=== PATIENT | female | born 2000 | race African-American/Black ===

== ENCOUNTER 2019-05-10 18:40 | Day surgery (SDC) | payer OTHER, SELFPAY ==
[2019-05-10] MEDS ORDERED: Acetaminophen 500 MG TAB ONE (20:23)
[2019-05-10 20:46] LABS: #Eosinphils 0.2 thou/uL (0.0-0.7); #Lymphocytes 2.1 thou/uL (1.20-3.40); #Neutrophils 8.5 thou/uL (1.40-6.50); %Basophils 0.2 % (0.0-1.0); %Eosinophils 1.4 % (0.0-10.0); %Lymphocytes 17.9 % (28.0-48.0); %Monocytes 8.2 % (0.0-4.0); %Neutrophils 72.3 % (31.0-61.0); Hemoglobin 10.4 g/dL (12.0-16.0); Mean Corpuscular HGB CONC 34.8 g/dL (32.0-36.0); Mean Corpuscular Hemoglobin 30.2 pg (25.0-35.0); Mean Corpuscular Volume 86.9 fL (78.0-98.0); Mean Platelet Volume 8.1 fL (7.4-10.4); Platelet Count 290 thou/uL (130-400); RBC Distribution Width 15.5 % (11.5-14.5); Red Blood Cell (RBC) Count 3.43 mill/uL (4.00-5.20); White Blood Cell (WBC) Count 11.7 thou/uL (4.8-10.8)
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
[2019-05-10 21:08] LABS: ALT (SGPT) Less than 7 U/L (8-55); AST (SGOT) 11 U/L (5-30); Albumin 3.3 g/dL (3.5-5.0); Alkaline Phosphatase 68 U/L (40-100); Anion Gap 13 mmol/L (10-20); BUN (Urea Nitrogen) 4 mg/dL (8.4-21.0); Bilirubin, Total Less than 0.2 mg/dL (0.2-1.2); Calc. Creatinine Clearance 0 mL/min (70-130); Carbon Dioxide 23 mmol/L (22-29); Chloride 104 mmol/L (98-107); Estimated GFR-MDRD Greater than 90; Globulin 3.1 g/dL (2.4-3.5); Glucose 115 mg/dL (70-105); Potassium 3.7 mmol/L (3.5-5.1); Protein, Total 6.4 g/dL (6.0-8.3); Sodium 136 mmol/L (136-145)
[2019-05-10 22:42] VITALS: BP 112/70; TEMP 98.7; BMI 29.2
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
== END 2019-05-10 22:48 | disposition home or self-care (01) ==
LOC: L&D/OP 18:40 → ERS 18:40 → EDSTATUS 21:50 → L&D/OP 22:48
PROVIDERS: ATTEND Obstetrics & Gynecology
DX: Z04.1 Encounter for examination and observation following transport accident (principal); O99.89 Other specified diseases and conditions complicating pregnancy, childbirth and the puerperium; M54.2 Cervicalgia; Z3A.30 30 weeks gestation of pregnancy
CPT/HCPCS: 36415; 72050; 80053; 85025; 85384

== ENCOUNTER 2019-06-27 18:00 | Inpatient (IN) | payer MEDICAID, OTHER ==
[~2019-06-27 18:00] MED LIST: NS / Oxytocin 40 units/1000ml 1,000 ML IV PRN; Ondansetron PF 4 MG/2 ML Vial IVP PRN; Promethazine HCl 25 MG/ML VIAL IM PRN; hydrALAZINE 20 MG/ML VIAL SLOW IVP PRN
[2019-06-27] MEDS ORDERED: Ibuprofen 800 MG TAB PO PRN (19:00)
[2019-06-27] MEDS ORDERED: Lidocaine 1% (PF) 30 ML VIAL SC PRN (19:00)
[2019-06-27] MEDS ORDERED: Misoprostol 200 MCG TAB PR PRN (19:00)
[2019-06-27] MEDS ORDERED: Carboprost 250 MCG/ML AMP IM PRN (19:00)
[2019-06-27] MEDS: Lactated Ringer's 1,000 ML IV SCH (19:12)
[2019-06-27] MEDS ORDERED: Misoprostol 100 MCG TAB VAG SCH (19:30)
[2019-06-27 19:48] VITALS: BMI 35.6
[2019-06-27 19:49] LABS: Hemoglobin 10.3 g/dL (12.0-16.0); Mean Corpuscular HGB CONC 34.4 g/dL (32.0-36.0); Mean Corpuscular Hemoglobin 28.4 pg (25.0-35.0); Mean Corpuscular Volume 82.5 fL (78.0-98.0); Mean Platelet Volume 8.1 fL (7.4-10.4); Platelet Count 284 thou/uL (130-400); RBC Distribution Width 16.8 % (11.5-14.5); Red Blood Cell (RBC) Count 3.64 mill/uL (4.00-5.20); White Blood Cell (WBC) Count 11.4 thou/uL (4.8-10.8)
[2019-06-27 20:08] LABS: ALT (SGPT) 8 U/L (8-55); AST (SGOT) 15 U/L (5-30); Albumin 3.1 g/dL (3.5-5.0); Alkaline Phosphatase 115 U/L (40-100); Anion Gap 10 mmol/L (10-20); BUN (Urea Nitrogen) Less than 4 mg/dL (8.4-21.0); Bilirubin, Total 0.2 mg/dL (0.2-1.2); Calc. Creatinine Clearance 200 mL/min (70-130); Calcium 8.7 mg/dL (7.8-10.44); Carbon Dioxide 23 mmol/L (22-29); Chloride 105 mmol/L (98-107); Estimated GFR-MDRD Greater than 90; Globulin 3.1 g/dL (2.4-3.5); Glucose 109 mg/dL (70-105); Potassium 3.4 mmol/L (3.5-5.1); Protein, Total 6.2 g/dL (6.0-8.3); Sodium 135 mmol/L (136-145)
[2019-06-27 20:26] LABS: Syphilis Antibody Nonreactive (Nonreactive); Syphilis Antibody Index 0.04 S/CO (<1.00 Non-Reactive)
[2019-06-27 23:03] LABS: HBSAg Index 0.16 S/CO (0-0.99); Hep B Surf Ag Non-Reactive S/CO (NonReactive)
--- NOTE | 2019-06-28 00:09 | PDOC.FPROB ---
FMR OB H&P: HPI - History of Present Illness Chief Complaint: IOL for gHTN Indentification: 18 yo at 37.0 weeks presents for IOL History of Present Illness: Patient is a 18 yo female at 37.0 weeks by LMP c/w 7.3 wk U/S who presents for induction of labor for gestational hypertension. course has also been followed for weight gain of 49 pounds and anemia of . Currently the patient denies any complaints and states she feels well. Denies any vaginal bleeding/spotting, vaginal discharge, loss of fluid, headaches, vision changes, blurry vision, abdominal pain, n/v, diarrhea, myalgias, paresthesias. Primary Care Physician: [facility] FMR OB H&P: Current - Care : 1 Para: 0 Gestational age: 37.0 weeks Due date: 07/18/2019 Dating Criteria: 7.3 week u/s Total weight gain: 49 lbs Course/Complications: Anemia of Obesity, BMI 35 with total weight gain so far of 49 lbs Gestational Hypertension - OB Labs Blood type: O RH: positive Antibody Screen: negative HIV: negative RPR: negative HepBsAg: negative Rubella: immune Quad screen: unknown Urine drug screen: not done Gonorrhea: negative Chlamydia: negative 1 hour gtt: 130 GBS: negative H&H: 10.7 Platelets: 374 Additional labs: last urine protein/creatinine ratio 0.150 - Additional Ultrasound Additional: growth 37.2% FMR OB H&P: History - Past Medical History PMH: sickle cell trait - OB History OB History: G1 - Surgical History Sx History: none - Social History Social History: Denies tobacco or EtOH use - Family History Family History: no major issues FMR OB H&P: Medications - Current Home Medications: Medication Instructions Recorded Confirmed Type Vitamin 1 tablet PO DAILY 06/27/19 06/27/19 History Allergies/Adverse Reactions: Allergies Allergy/AdvReac Type Severity Reaction Status Date / Time No Known Allergies Allergy Verified 06/27/19 19:42 FMR OB H&P: ROS - Review of Systems General: denies: fever/chills, weight/appetite/sleep changes, fatigue Eyes: denies: eye pain, vision changes, double vision ENT: denies: nasal congestion, sore throat Cardiovascular: denies: chest pain, palpitation, edema, claudication Respiratory: denies: cough, congestion, shortness of breath Gastrointestinal: denies: abdominal pain, indigestion, nausea, vomiting, diarrhea Genitourinary (Female): denies: dysuria, vaginal discharge, vaginal pain, vaginal bleeding, contractions, vaginal pressure Musculoskeletal: denies: pain, tenderness, swelling, decrease range of motion Neurologic: denies: numbness, weakness, headache Integumentary: denies: itching, rash, lesions Psychological: denies: depression, anxiety FMR OB H&P: Vital Signs - Maternal Vital signs: BP 137/84 HR 110 - Heart Tones Baseline: 155 Variability: moderate Acceleration: present Deceleration: absent Category: category 1 [place] contractions every: none seen on monitor FMR OB H&P: Physical Exam - Physical Exam General: NAD, awake, alert and oriented HEENT: normocephalic and atraumatic, EOMI, MMM, grossly normal vision, grossly normal hearing Neck: supple, FROM Heart: RRR, normal S1/S2, no murmurs/rubs/gallops, pulses present, no edema General: CTAB, no respiratory distress, good air movement, no rales/rhonchi, no wheezing Abdomen: soft, non-tender, bowel sound present Musculoskeletal: normal gait and station, pulses present, FROM in all four extremities Deviation from normal: DTRs 2+ in patella and achilles Neurological: sensation to pain,touch and proprioception grossly normal, no clonus, no tremor, no focal deficit Skin: no rash, good tugor, no jaundice Lymphatic: no unusual bruising or bleeding Psychiatric: intact recent and remote memory, normal mood and affect - Pelvic Exam Vulva: normal hair distribution, no lesions, no discharge, no blood SVE: thick, high, closed Segura score: 0 Membranes: intact Presentation: cephalic/vertex FMR OB H&P: Results - Labs Lab results: Laboratory Results - last 24 hr 06/27/19 06/27/19 06/27/19 19:37 19:37 19:37 WBC RBC Hgb Hct MCV MCH MCHC RDW Plt Count MPV Sodium Potassium Chloride Carbon Dioxide Anion Gap BUN Creatinine Estimated GFR (MDRD) Glucose Uric Acid Calcium Total Bilirubin AST ALT Alkaline Phosphatase Serum Total Protein Albumin Globulin Albumin/Globulin Ratio Syphilis IgG/IgM Ab Nonreactive Hep Bs Antigen Non-Reactive Blood Type O POSITIVE Antibody Screen NEGATIVE 06/27/19 06/27/19 06/27/19 19:37 19:37 19:37 WBC 11.4 H RBC 3.64 L Hgb 10.3 L Hct 30.0 L MCV 82.5 MCH 28.4 MCHC 34.4 RDW 16.8 H Plt Count 284 MPV 8.1 Sodium 135 L Potassium 3.4 L Chloride 105 Carbon Dioxide 23 Anion Gap 10 BUN Less than 4 L Creatinine 0.65 Estimated GFR (MDRD) Greater than 90 Glucose 109 H Uric Acid 5.7 Calcium 8.7 Total Bilirubin 0.2 AST 15 ALT 8 Alkaline Phosphatase 115 H Serum Total Protein 6.2 Albumin 3.1 L Globulin 3.1 Albumin/Globulin Ratio 1.0 L Syphilis IgG/IgM Ab Hep Bs Antigen Blood Type Antibody Screen 06/27/19 19:50 WBC RBC Hgb Hct MCV MCH MCHC RDW Plt Count MPV Sodium Potassium Chloride Carbon Dioxide Anion Gap BUN Creatinine Estimated GFR (MDRD) Glucose Uric Acid Calcium Total Bilirubin AST ALT Alkaline Phosphatase Serum Total Protein Albumin Globulin Albumin/Globulin Ratio Syphilis IgG/IgM Ab Hep Bs Antigen Blood Type O POSITIVE Antibody Screen FMR OB H&P: A/P - Problem List (1) Third trimester Status: Acute Code(s): Z34.93 - ENCNTR FOR SUPRVSN OF NORMAL PREG, UNSP, THIRD TRIMESTER (2) Encounter for elective induction of labor Status: Acute Code(s): Z34.90 - ENCNTR FOR SUPRVSN OF NORMAL , UNSP, UNSP TRIMESTER Disposition: 18 yo female at 37.0 weeks presents for IOL for gHTN: #Third Trimester -planned induction of labor for gestational HTN -will place cytotec 25 mg per vagina -initial SVE closed, thick, and high--plan to recheck SVE in 4 hours (approx. 0100) #Gestational HTN -no severe range pressures at clinic, current BP 137/84 -will check Pre-E labs including CBC, CMP, uric acid, urine protein, urine creatinine Dispo: Stable, admitted to L&D for planned induction. Will plan for next check in 4 hours. Depending on SVE at that time will consider repeating cytotec vs another induction agent. Will continue to monitor. Discussion: Date/Time: 11/25/19 2100 This H&P was discussed with Dr. Farmer and Dr. Santos who agree with the above documentation and plan. Addendum - Attending - Attending Attestation Date/Time: 06/27/19 3664 I personally evaluated the patient and discussed the management with Dr. Denney I agree with the History, Examination, Assessment and Plan documented above with any addition or exceptions noted below. 18 yo female admitted for medically indicated IOL for gHTN. Patient denies symptoms. No severe range BP. Labs repeated today. Cephalic by sono. Unfavorable cervix. Induction with miso q 4 hours. Ok to eat after 2 hours if remains stable. Cat 1 tracing. ABrayMD
--- NOTE | 2019-06-28 02:13 | PDOC.LDPN ---
Labor & Delivery Progress Note - Subjective Subjective: comfortable, no concerns - Objective Vital signs reviewed and normal: yes (BP 124/71, HR 104) General: NAD, resting Uterine fundus: non tender SVE: thick, closed, high FHT: category 1, variability present [place] contractions every: 3-6 min - Assessment (1) Third trimester Code(s): Z34.93 - ENCNTR FOR SUPRVSN OF NORMAL PREG, UNSP, THIRD TRIMESTER Status: Acute (2) Encounter for elective induction of labor Code(s): Z34.90 - ENCNTR FOR SUPRVSN OF NORMAL , UNSP, UNSP TRIMESTER Status: Acute Plan: continue plan of care, labor augmentation -: 18 yo female at 37.0 weeks presents for IOL for gHTN: #Third Trimester -planned induction of labor for gestational HTN -cytotec 25 mg per vagina given at 2100 06/27, placed again at 0100 06/28 -SVE closed, thick, and high--plan to recheck SVE in 4 hours (approx. 0500) #Gestational HTN -no severe range pressures at clinic, current BP 124/71 -CBC, CMP, uric acid all near baseline values compared to [facility] records -urine protein, urine creatinine both still pending Dispo: Stable, admitted to L&D for planned induction. Will plan for next check in 4 hours. Depending on SVE at that time will consider repeating cytotec vs another induction agent. Will continue to monitor. Addendum - Attending - Attending Attestation Date/Time: 06/28/19 4400 I personally evaluated the patient and discussed the management with Dr. Denney I agree with the History, Examination, Assessment and Plan documented above with any addition or exceptions noted below. Stable. Give 2nd miso. Cat 1 tracing. Robby
[2019-06-28] MEDS: Butorphanol Tartrate 1 MG/ML VIAL SLOW IVP PRN ×4 (02:56→16:39)
[2019-06-28] MEDS: Lactated Ringer's 1,000 ML IV SCH ×3 (02:57→15:32)
--- NOTE | 2019-06-28 06:00 | PDOC.LDPN ---
Labor & Delivery Progress Note - Subjective Subjective: comfortable, no concerns - Objective Vital signs reviewed and normal: yes (BP 133/78, HR 111) General: NAD, resting Uterine fundus: non tender SVE: thick/closed/high FHT: category 1, variability present [place] contractions every: 1-2 min - Assessment (1) Third trimester Code(s): Z34.93 - ENCNTR FOR SUPRVSN OF NORMAL PREG, UNSP, THIRD TRIMESTER Current Visit: Yes Status: Acute (2) Encounter for elective induction of labor Code(s): Z34.90 - ENCNTR FOR SUPRVSN OF NORMAL , UNSP, UNSP TRIMESTER Current Visit: Yes Status: Acute Plan: continue plan of care, labor augmentation -: 18 yo female at 37.0 weeks presents for IOL for gHTN: #Third Trimester -planned induction of labor for gestational HTN -cytotec 25 mg per vagina given at 2100 06/27, placed again at 0100 06/28-- cannot give another cytotec at this time due to increased frequency of uterine contractions -will consider placing balloon -SVE closed, thick, and high--plan to recheck SVE in 4 hours (approx. 0900) -added on Stadol for pain control #Gestational HTN -no severe range pressures at clinic, current BP 133/78 -CBC, CMP, uric acid all near baseline values compared to [facility] records -urine protein, urine creatinine both still pending Dispo: Stable, admitted to L&D for planned induction. Will consider placing balloon in next 1-2 hours. Continue to monitor contractions, hold off on cytotec at this point. Will continue to monitor. Will plan for next check in 4 hours.
[2019-06-28] MEDS: Misoprostol 100 MCG TAB VAG SCH ×4 (07:32→21:44)
[2019-06-28] MEDS ORDERED: FLU VACC QS2019-20(6MOS UP)/PF 60 MCG/0.5 ML SYRINGE IM ONE (09:00)
[2019-06-28] MEDS ORDERED: NS w/ Oxytocin 10 units 500 ML ONE (13:58)
[2019-06-28] MEDS ORDERED: NS w/ Oxytocin 10 units 500 ML IV SCH (14:00)
[2019-06-28] MEDS ORDERED: Misoprostol 100 MCG TAB VAG SCH (20:45)
--- NOTE | 2019-06-28 21:49 | PDOC.LDPN ---
Labor & Delivery Progress Note - Subjective Subjective: comfortable - Objective Vital signs reviewed and normal: yes General: NAD, resting - Assessment (1) Gestational HTN Code(s): O13.9 - GESTATIONAL HTN W/O SIGNIFICANT PROTEINURIA, UNSP TRIMESTER Current Visit: Yes Status: Acute (2) Encounter for elective induction of labor Code(s): Z34.90 - ENCNTR FOR SUPRVSN OF NORMAL , UNSP, UNSP TRIMESTER Current Visit: Yes Status: Acute (3) Third trimester Code(s): Z34.93 - ENCNTR FOR SUPRVSN OF NORMAL PREG, UNSP, THIRD TRIMESTER Current Visit: Yes Status: Acute -: 18 yo female at 37.1 weeks presents for IOL for gHTN: #Third Trimester -planned induction of labor for gestational HTN -cytotec 25 mg per vagina given at 2100 06/27, 0100 06/28, 2200 on 06/18 - 2 attempts at balloon unsuccessful during day 06/28 -SVE /-3 recheck in 4 hours #Gestational HTN -no severe range pressures at clinic, current BP 122/78 -CBC, CMP, uric acid all near baseline values compared to [facility] records
[2019-06-29] MEDS: Misoprostol 100 MCG TAB VAG SCH ×2 (02:17→06:02)
[2019-06-29] MEDS: Butorphanol Tartrate 1 MG/ML VIAL SLOW IVP PRN ×3 (02:40→10:19)
--- NOTE | 2019-06-29 05:35 | PDOC.LDPN ---
Labor & Delivery Progress Note - Subjective Subjective: comfortable, painful contractions - Objective General: NAD, resting, breathing through contractions Uterine fundus: non tender SVE: @ 0200 Dilation: Closed Effacement: 50% Station: -3 FHT: category 1, variability present [place] contractions every: 3-5 minutes Procedures: cytotec #4 placed - Assessment (1) Encounter for elective induction of labor Code(s): Z34.90 - ENCNTR FOR SUPRVSN OF NORMAL , UNSP, UNSP TRIMESTER Current Visit: Yes Status: Acute Plan: continue plan of care, labor augmentation -: 18 yo female at 37.1 weeks presents for IOL for gHTN: #Third Trimester -planned induction of labor for gestational HTN -cytotec 25 mg per vagina given at 2100 06/27, 0100 06/28, 2200 on 06/28, 0200 06/29 -SVE 0/50/-3 @ 0200 recheck in 4 hours #Gestational HTN -no severe range pressures at clinic, current BP 129/71 -CBC, CMP, uric acid all near baseline values compared to [facility] records
--- NOTE | 2019-06-29 06:09 | PDOC.LDPN ---
Labor & Delivery Progress Note - Subjective Subjective: comfortable - Objective Vital signs reviewed and normal: yes General: NAD - Assessment (1) Gestational HTN Code(s): O13.9 - GESTATIONAL HTN W/O SIGNIFICANT PROTEINURIA, UNSP TRIMESTER Current Visit: Yes Status: Acute (2) Encounter for elective induction of labor Code(s): Z34.90 - ENCNTR FOR SUPRVSN OF NORMAL , UNSP, UNSP TRIMESTER Current Visit: Yes Status: Acute (3) Third trimester Code(s): Z34.93 - ENCNTR FOR SUPRVSN OF NORMAL PREG, UNSP, THIRD TRIMESTER Current Visit: Yes Status: Acute -: 18 yo female at 37.1 weeks presents for IOL for gHTN: #Third Trimester -planned induction of labor for gestational HTN -cytotec 25 mg per vagina given at 2100 06/27, 0100 06/28, 2200 on 06/28, 0200 06/29, 0600 06/29 -SVE 0/50/-3 @ 0600 FHT: baseline 145, variability present, accels present, no decels [place]: contractions q4-5 but are irregular at times #Gestational HTN -no severe range pressures at clinic, current BP 122/68 -CBC, CMP, uric acid all near baseline values compared to [facility] records
--- NOTE | 2019-06-29 12:00 | PDOC.LDPN ---
Labor & Delivery Progress Note - Subjective Subjective: comfortable, painful contractions - Objective Vital signs reviewed and normal: yes General: resting Uterine fundus: non tender Dilation: 1 Effacement: 50% Station: -3 FHT: category 1, variability present [place] contractions every: q1-3 - Assessment (1) Encounter for elective induction of labor Code(s): Z34.90 - ENCNTR FOR SUPRVSN OF NORMAL , UNSP, UNSP TRIMESTER Current Visit: Yes Status: Acute (2) Gestational HTN Code(s): O13.9 - GESTATIONAL HTN W/O SIGNIFICANT PROTEINURIA, UNSP TRIMESTER Current Visit: Yes Status: Acute (3) Third trimester Code(s): Z34.93 - ENCNTR FOR SUPRVSN OF NORMAL PREG, UNSP, THIRD TRIMESTER Current Visit: Yes Status: Acute -: 18 yo female at 37.1 weeks presents for IOL for gHTN: Third Trimester -planned induction of labor for gestational HTN -cytotec 25 mg per vagina given at 2100 06/27, 0100 06/28, 2200 on 06/28, 0200 06/29, 0600 06/29 -SVE 0/50/-3 @ 10:00 FHT: baseline 145, variability present, accels present, no decels [place]: contractions q1-3, received stadol no further cytotec at this time due to tachysystole - will recheck in 2 hours, will be 6 hours since last cytotec and assess for possible DC w/ follow up and rescheduled induction vs further augmentation Questionable chronic vs gestational HTN -no severe range pressures at clinic or here -CBC, CMP, uric acid all near baseline values compared to [facility] records -Review of [facility] records show elevated BP at approximately 9 weeks Addendum - Attending - Attending Attestation Date/Time: 06/29/19 1309 I personally evaluated the patient and discussed the management with Dr. Stahl I agree with the History, Examination, Assessment and Plan documented above with any addition or exceptions noted below. I personally evaluated the patient at 1300. SVE at 1300 was 0.5/50/-3. I reviewed the patient's clinic records and vitals during this induction. Her first elevated BP was at approximately 9 wk and was 144/90s which decreased to 138/80s on repeat. She was initiated on ASA PPx at that time and had baseline HTN labs drawn. Urine prot/cr was 0.29 at that time. She had repeat HTN labs drawn during late 2nd/early 3rd trimester which were unremarkable and had a urine prot/cr ratio of 0.15. She continued to have borderline BP throughout the but became consistently high 130s to low 140s as the progressed at which time she was dx with gHTN. During her induction, her highest BP was 144/100 which resolved spontaneously. The majority of her BP have been 120s-130s/80-low 90s. Her repeat PIH labs were unremarkable. She received 5 total dose of cytotec and had 2 failed cook balloon placements during this induction which changed her cervix from c/t/h to 0.5/50/-3. I discussed options with patient and FOB including placement of a 6th cytotec vs. d/c home with reattempt at IOL on 07/01/19. I discussed R/B/A of each option with the patient and FOB. Patient states she has home BP monitoring in place and has been adherent to home monitoring during this . I instructed her to check BP BID and RTC if BP >160/110 or she develops severe features which I described at length. I also discussed labor precautions with her at length. All questions were answered to her and the FOB's satisfaction. Repeat IOL scheduled on 07/01 at 0530. Patient given instructions and d/c home.
== END 2019-06-29 13:20 | disposition home health service (06) | DRG 833 ==
LOC: L&D 18:28
PROVIDERS: ADMIT Student in an Organized Health Care Education/Training Program; ATTEND Student in an Organized Health Care Education/Training Program
PROC: 3E0P7VZ Introduction of Hormone into Female Reproductive, Via Natural or Artificial Opening (ICD-10-PCS; principal; 2019-06-28)
PROC: 0U7C7ZZ Dilation of Cervix, Via Natural or Artificial Opening (ICD-10-PCS; 2019-06-28)
DX: O13.3 Gestational [pregnancy-induced] hypertension without significant proteinuria, third trimester (principal); O99.013 Anemia complicating pregnancy, third trimester; D64.9 Anemia, unspecified; O99.213 Obesity complicating pregnancy, third trimester; E66.9 Obesity, unspecified; Z3A.37 37 weeks gestation of pregnancy
CPT/HCPCS: 36415; 80053; 82570; 84156; 84550; 85027; 86780; 86850; 86900; 86901; 87340; C1726; J0595; J2590

== ENCOUNTER 2019-07-01 05:30 | Inpatient (IN) | payer OTHER ==
--- NOTE | 2019-07-01 03:27 | PDOC.FPROB ---
FMR OB H&P: HPI - History of Present Illness Chief Complaint: IOL for gHTN Indentification: 18yo @ 37.4wks EGA (EDC 07/18/2019 by LMP/7.3 wk sono) History of Present Illness: Patient is a 18 yo female at 37.4 weeks by LMP c/w 7.3 wk U/S who presents for induction of labor for gestational hypertension. course has also been followed for weight gain of 49 pounds and anemia of . Currently the patient denies any complaints and states she feels well. Denies any vaginal bleeding/spotting, vaginal discharge, loss of fluid, headaches, vision changes, blurry vision, abdominal pain, n/v, diarrhea, myalgias, paresthesias Primary Care Physician: JOSE ANGEL Meléndez FMR OB H&P: Current - Care : 1 Para: 0 Gestational age: 37.4 Due date: 07/18/2019 Dating Criteria: LMP 7.3wk sono Total weight gain: 49lbs Course/Complications: gestational HTN anemia of obesity - OB Labs Blood type: O RH: positive Antibody Screen: negative HIV: negative RPR: negative HepBsAg: negative Rubella: immune Quad screen: unknown Urine drug screen: not done Gonorrhea: negative Chlamydia: negative 1 hour gtt: 130 GBS: negative - Additional Ultrasound Additional: growth 37.2% FMR OB H&P: History - Past Medical History PMH: sickle cell trait - OB History OB History: G1 - BILL PEDDLER History BILL PEDDLER History: None - Surgical History Sx History: None - Social History Social History: Denies tobacco, alcohol, or illicit drug use - Family History Family History: non-contributory FMR OB H&P: Medications - Current Home Medications: Medication Instructions Recorded Confirmed Type Vitamin 1 tablet PO DAILY 06/27/19 07/01/19 History Allergies/Adverse Reactions: Allergies Allergy/AdvReac Type Severity Reaction Status Date / Time No Known Allergies Allergy Verified 06/27/19 19:42 FMR OB H&P: ROS - Review of Systems General: denies: fever/chills, weight/appetite/sleep changes Eyes: denies: eye pain, vision changes ENT: denies: nasal congestion, rhinorrhea, sore throat Cardiovascular: denies: chest pain, palpitation, edema Respiratory: denies: cough, congestion, shortness of breath Gastrointestinal: denies: abdominal pain, indigestion Genitourinary (Female): reports: contractions. denies: dysuria, hematuria, polyuria, vaginal discharge, vaginal pain, vaginal bleeding, vaginal pressure Musculoskeletal: denies: pain, stiffness, tenderness Neurologic: denies: numbness, syncope, seizures, weakness Integumentary: denies: itching, rash, lesions FMR OB H&P: Physical Exam - Physical Exam General: NAD, awake, alert and oriented HEENT: normocephalic and atraumatic, PERRLA, EOMI, MMM, conjunctiva clear, grossly normal vision, grossly normal hearing Neck: supple, trachea midline Heart: RRR, normal S1/S2, no murmurs/rubs/gallops, pulses present, no edema General: CTAB, no respiratory distress, good air movement, no rales/rhonchi Abdomen: soft, gravid, non-tender Musculoskeletal: normal gait and station, pulses present, FROM in all four extremities Neurological: cranial nerves II through XII intact Skin: no rash, good tugor Lymphatic: no unusual bruising or bleeding, no purpura, no petechia Psychiatric: intact recent and remote memory, good judgement and insight, normal mood and affect FMR OB H&P: A/P - Problem List (1) Encounter for induction of labor Status: Acute Code(s): Z34.90 - ENCNTR FOR SUPRVSN OF NORMAL , UNSP, UNSP TRIMESTER (2) Gestational HTN Status: Acute Code(s): O13.9 - GESTATIONAL HTN W/O SIGNIFICANT PROTEINURIA, UNSP TRIMESTER (3) Third trimester Status: Acute Code(s): Z34.93 - ENCNTR FOR SUPRVSN OF NORMAL PREG, UNSP, THIRD TRIMESTER Disposition: Stable, inpatient Discussion: Date/Time: 07/01/19 0325 18 yo female at 37.4 weeks presents for IOL for gHTN: Third Trimester -planned induction of labor for gestational HTN -will place cytotec 25 mg per vagina -patient is currently being set up with nursing, once she is we will check her cervix and place the cytotec if indicated. Gestational HTN -no severe range pressures at clinic, current BP 134/94 -recent Pre-E workup negative 06/27 -will re-check Pre-E labs including CBC, CMP, uric acid, urine protein, urine creatinine if she spikes an elevated BP antepartum This H&P was discussed with Dr. Lopes and Dr. Dotson who agree with the above documentation and plan. Addendum - Attending - Attending Attestation Date/Time: 07/01/19 1005 I personally evaluated the patient and discussed the management with Dr. Reinoso I agree with the History, Examination, Assessment and Plan documented above with any addition or exceptions noted below. Repeat attempt at IOL indicated for gHTN. BP WNL today. unchanged since d/c. repeat cytotec IOL.
[2019-07-01] MEDS ORDERED: Carboprost 250 MCG/ML AMP IM PRN (05:59)
[2019-07-01] MEDS ORDERED: Lidocaine 1% (PF) 30 ML VIAL SC PRN (05:59)
[2019-07-01] MEDS ORDERED: Ondansetron PF 4 MG/2 ML Vial IVP PRN (05:59)
[2019-07-01] MEDS ORDERED: hydrALAZINE 20 MG/ML VIAL SLOW IVP PRN (05:59)
[2019-07-01] MEDS ORDERED: Promethazine HCl 25 MG/ML VIAL IM PRN (05:59)
[2019-07-01] MEDS ORDERED: NS / Oxytocin 40 units/1000ml 1,000 ML IV PRN (05:59)
[2019-07-01] MEDS ORDERED: Misoprostol 200 MCG TAB PR PRN (05:59)
[2019-07-01 06:15] VITALS: BMI 35.6
[2019-07-01] MEDS: Lactated Ringer's 1,000 ML IV SCH ×2 (06:15→15:09)
[2019-07-01 06:30] LABS: Hemoglobin 10.4 g/dL (12.0-16.0); Mean Corpuscular HGB CONC 33.9 g/dL (32.0-36.0); Mean Corpuscular Hemoglobin 27.7 pg (25.0-35.0); Mean Corpuscular Volume 81.8 fL (78.0-98.0); Mean Platelet Volume 8.7 fL (7.4-10.4); Platelet Count 278 thou/uL (130-400); Red Blood Cell (RBC) Count 3.75 mill/uL (4.00-5.20)
[2019-07-01 06:58] LABS: ALT (SGPT) 10 U/L (8-55); AST (SGOT) 12 U/L (5-30); Albumin 2.7 g/dL (3.5-5.0); Alkaline Phosphatase 113 U/L (40-100); Anion Gap 12 mmol/L (10-20); BUN (Urea Nitrogen) 6 mg/dL (8.4-21.0); Bilirubin, Total 0.2 mg/dL (0.2-1.2); Calc. Creatinine Clearance 176 mL/min (70-130); Calcium 8.2 mg/dL (7.8-10.44); Carbon Dioxide 24 mmol/L (22-29); Chloride 106 mmol/L (98-107); Estimated GFR-MDRD Greater than 90; Globulin 2.5 g/dL (2.4-3.5); Glucose 88 mg/dL (70-105); Potassium 3.4 mmol/L (3.5-5.1); Protein, Total 5.2 g/dL (6.0-8.3); Sodium 139 mmol/L (136-145)
[2019-07-01 07:08] LABS: Hep B Surf Ag Non-Reactive S/CO (NonReactive); Syphilis Antibody Nonreactive (Nonreactive); Syphilis Antibody Index 0.04 S/CO (<1.00 Non-Reactive)
[2019-07-01] MEDS: Misoprostol 100 MCG TAB VAG SCH (08:00)
--- NOTE | 2019-07-01 08:19 | PDOC.LDPN ---
Labor & Delivery Progress Note - Subjective Subjective: comfortable - Objective Vital signs reviewed and normal: yes General: NAD Dilation: 0.5 FHT: category 1, variability present [place] contractions every: None - Assessment (1) Encounter for induction of labor Code(s): Z34.90 - ENCNTR FOR SUPRVSN OF NORMAL , UNSP, UNSP TRIMESTER Current Visit: No Status: Acute (2) Gestational HTN Code(s): O13.9 - GESTATIONAL HTN W/O SIGNIFICANT PROTEINURIA, UNSP TRIMESTER Current Visit: No Status: Acute (3) Third trimester Code(s): Z34.93 - ENCNTR FOR SUPRVSN OF NORMAL PREG, UNSP, THIRD TRIMESTER Current Visit: No Status: Acute Plan: continue plan of care, labor augmentation -: 18 yo female at 37.4 weeks presents for IOL for gHTN: Third Trimester -planned induction of labor for gestational HTN -cytotec 25mcg @ 0820 -SVE: 0.5/50/-3 @ 0820 -bedside US confirmed vertex position Gestational HTN -no severe range pressures at clinic, current BP 129/69 -recent Pre-E workup negative 06/27 -will re-check Pre-E labs including CBC, CMP, uric acid, urine protein, urine creatinine if she spikes an elevated BP antepartum
[2019-07-01] MEDS: Butorphanol Tartrate 1 MG/ML VIAL SLOW IVP PRN ×3 (13:00→21:48)
--- NOTE | 2019-07-01 14:18 | PDOC.LDPN ---
Labor & Delivery Progress Note - Subjective Subjective: comfortable, no concerns - Objective Vital signs reviewed and normal: yes General: NAD, resting, breathing through contractions Uterine fundus: non tender SVE: 1230 Dilation: .5 Effacement: 50% Station: -3 FHT: category 1, variability present [employer] contractions every: 4-5 minutes - Assessment (1) Gestational HTN Code(s): O13.9 - GESTATIONAL HTN W/O SIGNIFICANT PROTEINURIA, UNSP TRIMESTER Current Visit: No Status: Acute (2) Third trimester Code(s): Z34.93 - ENCNTR FOR SUPRVSN OF NORMAL PREG, UNSP, THIRD TRIMESTER Current Visit: No Status: Acute Plan: continue plan of care, labor augmentation -: 18 yo female at 37.4 weeks presents for IOL for gHTN: Third Trimester -planned induction of labor for gestational HTN -bedside US confirmed vertex position -cytotec 25mcg @ 0820 -SVE: 0.5/50/-3 @ 0820 @12:30 .5/50/-3. 25 mcg cytotec placed. Gestational HTN -no severe range pressures at clinic, current BP 129/69 -recent Pre-E workup negative 06/27 -Pt CBC and CMP pre labs WNL. Awaiting Urine pr/cr ratio.
--- NOTE | 2019-07-01 19:13 | PDOC.LDPN ---
Labor & Delivery Progress Note - Subjective Subjective: comfortable, no concerns - Objective Vital signs reviewed and normal: yes General: NAD, resting, breathing through contractions Uterine fundus: non tender SVE: @ 1900 Dilation: 2/50/-2 FHT: category 1 [place] contractions every: 2-5 - Assessment (1) Encounter for induction of labor Code(s): Z34.90 - ENCNTR FOR SUPRVSN OF NORMAL , UNSP, UNSP TRIMESTER Current Visit: No Status: Acute (2) Gestational HTN Code(s): O13.9 - GESTATIONAL HTN W/O SIGNIFICANT PROTEINURIA, UNSP TRIMESTER Current Visit: No Status: Acute (3) Third trimester Code(s): Z34.93 - ENCNTR FOR SUPRVSN OF NORMAL PREG, UNSP, THIRD TRIMESTER Current Visit: No Status: Acute Plan: continue plan of care -: 18 yo female at 37.4 weeks presents for IOL for gHTN: Third Trimester -planned induction of labor for gestational HTN -bedside US confirmed vertex position -SVE @1900 2/50/-2 25mcg cytotec placed Gestational HTN -no severe range pressures at clinic, current BP 129/69 -recent Pre-E workup negative 06/27 -Pt CBC and CMP pre labs WNL. Awaiting Urine pr/cr ratio.
[2019-07-01] MEDS ORDERED: FLU VACC QS2019-20(6MOS UP)/PF 60 MCG/0.5 ML SYRINGE IM ONE (21:00)
[2019-07-01] MEDS ORDERED: Fentanyl 4 mcg/Bup 0.1% Cadd 100 ML ONE (23:18)
[2019-07-01] MEDS ORDERED: NS w/ Oxytocin 10 units 500 ML IV SCH (23:30)
--- NOTE | 2019-07-01 23:39 | PDOC.LDPN ---
Labor & Delivery Progress Note - Subjective Subjective: painful contractions - Objective Vital signs reviewed and normal: yes General: NAD, breathing through contractions - Assessment (1) Encounter for elective induction of labor Code(s): Z34.90 - ENCNTR FOR SUPRVSN OF NORMAL , UNSP, UNSP TRIMESTER Status: Acute (2) Gestational HTN Code(s): O13.9 - GESTATIONAL HTN W/O SIGNIFICANT PROTEINURIA, UNSP TRIMESTER Status: Acute -: 18 yo female at 37.4 weeks presents for IOL for gHTN: Third Trimester -planned induction of labor for gestational HTN -bedside US confirmed vertex position -SVE @1900 250/-2 25mcg cytotec placed -SVE @ 2240 /-2 - 2315 SROM, clear fluid, patient desires epidural, will start pitocin for augmentation Gestational HTN -no severe range pressures at clinic, current BP 129/69 -recent Pre-E workup negative 06/27 -Pt CBC and CMP pre labs WNL. Awaiting Urine pr/cr ratio. Addendum - Attending - Attending Attestation Date/Time: 07/02/19 0002 I personally evaluated the patient and discussed the management with Dr. Lopes. I agree with the History, Examination, Assessment and Plan documented above with any addition or exceptions noted below. Now that she recently had SROM, she is experiencing stronger contractions and will have an epidural, and we will start pitocin augmentation. \ FHTs Cat 1.
[2019-07-02] MEDS ORDERED: ePHEDrine/0.9% NaCl/PF SYRINGE 50 mg/10 ml SLOW IVP PRN (00:02)
[2019-07-02] MEDS ORDERED: Naloxone HCl 0.4 mg/ml Vial IVP PRN ×2 (00:02)
[2019-07-02] MEDS ORDERED: Acetaminophen 325 MG TAB PO PRN (00:02)
[2019-07-02] MEDS ORDERED: Lactated Ringer's 500 ML IV PRN (00:02)
[2019-07-02] MEDS ORDERED: diphenhydrAMINE 50 MG/ML VIAL IVP PRN (00:02)
[2019-07-02] MEDS ORDERED: Promethazine HCl 25 MG/ML VIAL IM PRN (00:02)
[2019-07-02] MEDS ORDERED: Ondansetron PF 4 MG/2 ML Vial IVP PRN (00:02)
[2019-07-02] MEDS ORDERED: Communication Order-Pharmacy FS SCH (00:15)
[2019-07-02] MEDS ORDERED: Fentanyl 4 mcg/Bupivacaine 0.1% Cassette 100 ML EPIDURAL SCH (00:15)
--- NOTE | 2019-07-02 03:30 | PDOC.LDPN ---
Labor & Delivery Progress Note - Subjective Subjective: comfortable - Objective Vital signs reviewed and normal: yes General: NAD, resting Uterine fundus: non tender SVE: per nurse /-2 @1230 Procedures: EPIDURAL @ 00:00 - Assessment (1) Encounter for induction of labor Code(s): Z34.90 - ENCNTR FOR SUPRVSN OF NORMAL , UNSP, UNSP TRIMESTER Current Visit: No Status: Acute (2) Gestational HTN Code(s): O13.9 - GESTATIONAL HTN W/O SIGNIFICANT PROTEINURIA, UNSP TRIMESTER Current Visit: No Status: Acute (3) Third trimester Code(s): Z34.93 - ENCNTR FOR SUPRVSN OF NORMAL PREG, UNSP, THIRD TRIMESTER Current Visit: No Status: Acute Plan: continue plan of care, pitocin for augmentation -: 18 yo female at 37.4 weeks presents for IOL for gHTN: Third Trimester -planned induction of labor for gestational HTN -bedside US confirmed vertex position -SVE @1900 2/-2 25mcg cytotec placed -SVE @ 2240 /-2 - 2315 SROM, clear fluid, patient desires epidural, will start pitocin for augmentation -SVE @ 1230 /-2 Gestational HTN -no severe range pressures at clinic, pressures have been much better since epidural -recent Pre-E workup negative 06/27
--- NOTE | 2019-07-02 03:32 | PDOC.LDPN ---
Labor & Delivery Progress Note - Subjective Subjective: comfortable, no concerns - Objective Vital signs reviewed and normal: yes General: NAD, resting Uterine fundus: non tender SVE: /-1 FHT: category 1 (FHT 140s) [place] contractions every: 2-3 min - Assessment (1) Encounter for induction of labor Code(s): Z34.90 - ENCNTR FOR SUPRVSN OF NORMAL , UNSP, UNSP TRIMESTER Current Visit: No Status: Acute (2) Gestational HTN Code(s): O13.9 - GESTATIONAL HTN W/O SIGNIFICANT PROTEINURIA, UNSP TRIMESTER Current Visit: No Status: Acute (3) Third trimester Code(s): Z34.93 - ENCNTR FOR SUPRVSN OF NORMAL PREG, UNSP, THIRD TRIMESTER Current Visit: No Status: Acute Plan: continue plan of care, pitocin for augmentation -: 18 yo female at 37.4 weeks presents for IOL for gHTN: Third Trimester -planned induction of labor for gestational HTN -bedside US confirmed vertex position -SVE @1900 250/-2 25mcg cytotec placed -SVE @ 2240 50/-2 - 2315 SROM, clear fluid, patient desires epidural, will start pitocin for augmentation -SVE @ 1230 /-2 EPIDURAL placed. -SVE @ 0330 /-1, pitocin @ 5 Gestational HTN -no severe range pressures at clinic, 124/76 most recent pressure. -recent Pre-E workup negative 06/27
[2019-07-02] MEDS: Lactated Ringer's 1,000 ML IV SCH ×3 (04:17→20:37)
--- NOTE | 2019-07-02 06:14 | PDOC.LDPN ---
Labor & Delivery Progress Note - Subjective Subjective: comfortable - Objective Abnormal vital signs: 171/107 167/108 General: NAD, resting Uterine fundus: non tender SVE: @0500 /-1 FHT: category 1 (140s) [place] contractions every: 3-4 - Assessment (1) Encounter for induction of labor Code(s): Z34.90 - ENCNTR FOR SUPRVSN OF NORMAL , UNSP, UNSP TRIMESTER Current Visit: No Status: Acute (2) Gestational HTN Code(s): O13.9 - GESTATIONAL HTN W/O SIGNIFICANT PROTEINURIA, UNSP TRIMESTER Current Visit: No Status: Acute (3) Third trimester Code(s): Z34.93 - ENCNTR FOR SUPRVSN OF NORMAL PREG, UNSP, THIRD TRIMESTER Current Visit: No Status: Acute Plan: continue plan of care, pitocin for augmentation -: 18 yo female at 37.4 weeks presents for IOL for gHTN: Third Trimester -planned induction of labor for gestational HTN -bedside US confirmed vertex position -SVE @1900 250/-2 25mcg cytotec placed -SVE @ 2240 50/-2 - 2315 SROM, clear fluid, patient desires epidural, will start pitocin for augmentation -SVE @ 1230 /-2 EPIDURAL placed. -SVE @ 0330 /-1, pitocin @ 5 -SVE @ 0500 /-1 Gestational HTN -She has had 2 severe range pressures since her last check (171/107 and 167/108) . She denies headache, vision changes, or pain. -Will initiate magnesium sulfate -no severe range pressures at clinic -recent Pre-E workup negative 06/27
[2019-07-02] MEDS ORDERED: Calcium Gluc 4.6 MEQ/10 ML (100 MG/ML) SLOW IVP PRN (06:18)
[2019-07-02] MEDS ORDERED: Fentanyl 4 mcg/Bup 0.1% Cadd 100 ML ONE (06:26)
[2019-07-02] MEDS ORDERED: Magnesium Sulfate 20 GM/WATER 500 ML BAG IVPB SCH (06:30)
[2019-07-02] MEDS ORDERED: Magnesium Sulfate 20 gm/500 ml 20 GM/500 ML BAG IVPB SCH (06:30)
[2019-07-02] MEDS ORDERED: Milk Of Magnesia 30 ML UDCUP PO PRN (09:31)
[2019-07-02] MEDS ORDERED: hydrALAZINE 20 MG/ML VIAL SLOW IVP PRN (09:31)
[2019-07-02] MEDS ORDERED: Adacel (T-DAP) 0.5 ML SYRINGE IM ONE (09:31)
[2019-07-02] MEDS ORDERED: Bisacodyl 10 MG SUPP PR PRN (09:31)
[2019-07-02] MEDS ORDERED: NS / Oxytocin 40 units/1000ml 1,000 ML IV SCH (09:45)
--- NOTE | 2019-07-02 11:42 | PDOC.OPDEL ---
OB Operative/Delivery Note Delivery Dr/Surgeon: Dr. Stahl Assist: Dr. Meléndez, attending Dr. Schafer Pre-Delivery Diagnosis: medically indicated induction Procedure/Post Delivery Dx: spontaneous vaginal delivery Weeks gestation: 37 (5wks) Anesthesia: epidural - Findings A Sex: female - 1 min: 8 - 5 min: 9 - Additional Findings/Plan Placenta delivered: spontaneous Repaired Obstetrical Laceration: none Estimated blood loss: 75ml Compilations/Other Findings: Delivery Note: This is a 18yo F @ 37.5wks who delivered a viable F infant at 0902 on . Following an uneventful antepartum course, a vigorous female was delivered over an intact perineum in the occipitoanterior position. Anterior Shoulder and then remainder of the body delivered. No nuchal cord. The head was held down and mouth and nares were bulb suctioned. Cord clamped after delayed cord clamping and cut and cord blood collected. Placenta delivered intact with a 3 vessel cord noted. Fundal massage was performed and the fundus was firm. The cervix and vagina were inspected and found to be free of lacerations. A hemostatic left periurethral abrasion was noted. Infant went to nursery in good condition for routine care. Apgars were 8/9 at 1 & 5 minutes, respectively. Patient tolerated delivery well and went to after routine recovery/care. Post delivery plan: routine recovery Addendum - Attending - Attending Attestation Date/Time: 07/02/19 1240 I personally supervised and assisted with the delivery.
--- NOTE | 2019-07-02 12:30 | PDOC.BPN ---
- Brief Progress Note Pt examined at 12:30 for a mag check: S: Pt has no complaints, resting comfortably. Denies pain. O: Vitals: BP 131/80, HR 93 Cardiac: RRR Lungs: CTAB Abd: soft, uterus firm at umbilicus. Ext: 2+ DTRs A&P: Gestational HTN - BP stable, no severe range since delivery. - continue close monitoring, Mag checks Q4H. -She had 2 severe range pressures overnight(171/107 and 167/108). She denies headache, vision changes, or pain. -Will continue magnesium sulfate for full 24 hours. -recent Pre-E workup negative 06/27
[2019-07-02] MEDS ORDERED: Ibuprofen 800 MG TAB PO SCH (14:00)
[2019-07-02] MEDS ORDERED: WATER IVPB SCH (16:15)
[2019-07-02] MEDS ORDERED: DEXTROSE 5% IVPB SCH (16:15)
[2019-07-02] MEDS ORDERED: MAGNESIUM SULFATE IVPB SCH (16:15)
[2019-07-02] MEDS: Magnesium Sulfate 20 GM in Dextrose 5% in Water 460 ML IVPB SCH (16:15)
[2019-07-02] MEDS ORDERED: Ferrous Sulfate 325 MG TAB PO SCH (17:00)
--- NOTE | 2019-07-02 17:04 | PDOC.BPN ---
- Brief Progress Note Pt examined at 4:55pm for a mag check: S: Pt has no complaints, resting comfortably. Denies pain. Abd: soft, uterus firm at umbilicus Ext: 2+ DTRs, no clonus Vitals: no severe range BP's, most in 130s-140s systolic with one in the 150s UOP: 300-450mL/hr A&P: Severe Gestational HTN -BP stable, no severe range since delivery. UOP adequate. -continue close monitoring, Mag checks Q4H. -She had 2 severe range pressures overnight(171/107 and 167/108). She denies headache, vision changes, or pain. -Will continue magnesium sulfate for full 24 hours. -recent Pre-E workup negative 06/27
[2019-07-02] MEDS ORDERED: Acetaminophen 650 MG/20.3 ML UDCUP PO PRN (18:05)
--- NOTE | 2019-07-03 01:06 | PDOC.BPN ---
- Brief Progress Note Pt examined at 1100pm for a mag check: S: Pt has no complaints, resting comfortably. Denies pain. Abd: soft, uterus firm at umbilicus Ext: 1+ DTRs, no clonus Vitals: no severe range BP's, bp: 115/71-143/96 since last check UOP: 300-400 mL/hr A&P: Severe Gestational HTN -BP stable, no severe range since delivery. UOP adequate. -continue close monitoring, Mag checks Q4H. -She had 2 severe range pressures yesterday night(171/107 and 167/108). She denies headache, vision changes, or pain. -Will continue magnesium sulfate for full 24 hours. -recent Pre-E workup negative 06/27
[2019-07-03] MEDS: Magnesium Sulfate 20 GM in Dextrose 5% in Water 460 ML IVPB SCH (02:12)
[2019-07-03] MEDS: Ibuprofen 100 MG/5 ML UDCUP PO SCH ×4 (03:02→20:20)
[2019-07-03] MEDS: Docusate Calcium (SURFAK) 240 MG CAP PO SCH ×3 (03:03→21:11)
[2019-07-03 03:50] LABS: Hemoglobin 10.1 g/dL (12.0-16.0); Mean Corpuscular HGB CONC 34.9 g/dL (32.0-36.0); Mean Corpuscular Hemoglobin 28.6 pg (25.0-35.0); Mean Corpuscular Volume 81.9 fL (78.0-98.0); Mean Platelet Volume 8.5 fL (7.4-10.4); Platelet Count 238 thou/uL (130-400); RBC Distribution Width 16.8 % (11.5-14.5); Red Blood Cell (RBC) Count 3.53 mill/uL (4.00-5.20); White Blood Cell (WBC) Count 11.7 thou/uL (4.8-10.8)
[2019-07-03 04:08] LABS: ALT (SGPT) Less than 7 U/L (8-55); AST (SGOT) 16 U/L (5-30); Albumin 2.2 g/dL (3.5-5.0); Alkaline Phosphatase 96 U/L (40-100); Anion Gap 9 mmol/L (10-20); BUN (Urea Nitrogen) Less than 4 mg/dL (8.4-21.0); Bilirubin, Total 0.2 mg/dL (0.2-1.2); Calc. Creatinine Clearance 169 mL/min (70-130); Calcium 7.5 mg/dL (7.8-10.44); Carbon Dioxide 25 mmol/L (22-29); Chloride 104 mmol/L (98-107); Estimated GFR-MDRD Greater than 90; Globulin 2.7 g/dL (2.4-3.5); Glucose 124 mg/dL (70-105); Protein, Total 4.9 g/dL (6.0-8.3); Sodium 135 mmol/L (136-145)
[2019-07-03 04:10] LABS: Potassium 2.8 mmol/L (3.5-5.1)
[2019-07-03] MEDS ORDERED: Potassium Chloride 20 MEQ in Premix Bag 1 BAG IVPB SCH (06:00)
--- NOTE | 2019-07-03 06:04 | PDOC.BPN ---
- Brief Progress Note Pt examined at 300 am for a mag check: S: Pt has no complaints, resting comfortably. Denies pain. Abd: soft, uterus firm at umbilicus Ext: 2+ DTRs, no clonus Vitals: no severe range BP's, bp: 123/70-138/69 since last check UOP: 400-600 mL/hr A&P: Severe Gestational HTN -BP stable, no severe range since delivery. UOP adequate. -continue close monitoring, Mag checks Q4H. -She had 2 severe range pressures two nights ago(171/107 and 167/108). She denies headache, vision changes, or pain. -Will continue magnesium sulfate for full 24 hours, ends at 0730 07/03 -recent Pre-E workup negative 06/27
--- NOTE | 2019-07-03 07:14 | PDOC.OBPPN ---
FMR OB PN: Subj - Interval History Day: 2 18 y/o ->1 @ 37.5 WGA delivered via @ 0902 on 07/02/19. Pt reports some mild abd pain that is controlled and minimal lochia. She has not been out of bed as she is on mag, but will try getting up today once mag is stopped. Denies N/V and has been tolerating clears well. Denies H/A, vision changes, RUQ pain, SOB. FMR OB PN: Obj - Maternal Vital signs: BP: 122/68 HR: 82 RR: 18 Tmax: 98.6 Pox: 99% on RA Wt: 91kg - Urine output I&O: 07/02/19 07/03/19 07/04/19 06:59 06:59 06:59 Output Total 139 Balance -139 FMR OB PN: Exam - Physical Exam General: NAD, awake, alert and oriented HEENT: normocephalic and atraumatic, MMM, conjunctiva clear, grossly normal vision, grossly normal hearing Neck: supple, no LAD Heart: pulses present, no edema General: no respiratory distress, good air movement Abdomen: soft, fundus(cm) (firm at umbilicus), non-tender Musculoskeletal: pulses present, FROM in all four extremities Neurological: DTR +1, no clonus, no focal deficit Skin: good tugor, capillary refill <2 seconds Lymphatic: no unusual bruising or bleeding, no purpura Psychiatric: intact recent and remote memory, good judgement and insight FMR OB PN: Data - Labs Lab results: Laboratory Results - last 24 hr 07/03/19 07/03/19 03:30 03:30 WBC 11.7 H RBC 3.53 L Hgb 10.1 L Hct 28.9 L MCV 81.9 MCH 28.6 MCHC 34.9 RDW 16.8 H Plt Count 238 MPV 8.5 Sodium 135 L Potassium 2.8 L* Chloride 104 Carbon Dioxide 25 Anion Gap 9 L BUN Less than 4 L Creatinine 0.77 Estimated GFR (MDRD) Greater than 90 Glucose 124 H Calcium 7.5 L Total Bilirubin 0.2 AST 16 ALT Less than 7 L Alkaline Phosphatase 96 Serum Total Protein 4.9 L Albumin 2.2 L Globulin 2.7 Albumin/Globulin Ratio 0.8 L FMR OB PN: A/P - Problem List (1) Term delivered Current Visit: Yes Status: Acute Code(s): O80 - ENCOUNTER FOR FULL-TERM UNCOMPLICATED DELIVERY Comment: Continue routine care -PNV -Encourage ambulation once off mag -Advance diet as tolerated -Ibuprofen for pain -Encouraged breast feeding, but pt declined (2) Gestational HTN Current Visit: No Status: Acute Code(s): O13.9 - GESTATIONAL HTN W/O SIGNIFICANT PROTEINURIA, UNSP TRIMESTER Comment: Pt developed a couple of severe range pressures just prior to delivery and was started on magnesium -Will stop mag after 24 hours -Transfer to -CBC and CMP this AM WNL except hypokalemia -Continue to monitor BP's, all WNL since last mag check -Pt is diuresing well ~ 400mL/hr (3) Sickle cell trait Current Visit: Yes Status: Acute Code(s): D57.3 - SICKLE-CELL TRAIT Comment: FOB did not get tested, pt asymptomatic (4) Hypokalemia Current Visit: Yes Status: Acute Code(s): E87.6 - HYPOKALEMIA Comment: K 2.8 this AM -Getting 40mEq KCL -Will encourage PO -Repeat this PM Disposition: Move to and continue routine care there Discussion: Date/Time: 07/03/19 3469 This H&P was discussed with Dr. Terrazas who agrees with the above documentation and plan. Signature: Shani Meléndez MD, PGY-3 Addendum - Attending - Attending Attestation Date/Time: 07/03/19 1105 I personally evaluated the patient and discussed the management with Dr. Meléndez. I agree with the History, Examination, Assessment and Plan documented above with any addition or exceptions noted below.
[2019-07-03] MEDS: Potassium Chloride 20 MEQ TAB PO SCH (09:30)
[2019-07-03] MEDS: Prenatal Vitamin 1 TAB PO SCH (09:31)
[2019-07-03 13:46] LABS: Anion Gap 9 mmol/L (10-20); BUN (Urea Nitrogen) Less than 4 mg/dL (8.4-21.0); Calc. Creatinine Clearance 183 mL/min (70-130); Carbon Dioxide 27 mmol/L (22-29); Chloride 104 mmol/L (98-107); Estimated GFR-MDRD Greater than 90; Glucose 74 mg/dL (70-105); Potassium 3.6 mmol/L (3.5-5.1); Sodium 136 mmol/L (136-145)
[2019-07-04] MEDS: Ibuprofen 100 MG/5 ML UDCUP PO SCH (06:45)
--- NOTE | 2019-07-04 06:57 | PDOC.OBPPN ---
FMR OB PN: Subj - Interval History Day: 2 18 y/o ->1 @ 37.5 WGA delivered via @ 0902 on 07/02/19. Pt reports some mild abd pain that is controlled and minimal lochia. She is ambulating and tolerating PO. Reports a headache last night that resolved with motrin. Denies N/V. Denies vision changes, RUQ pain, SOB. FMR OB PN: Obj - Maternal Vital signs: BP: 130/60 HR: 78 RR: 16 Tmax: 98.6 Pox: 100% on RA Wt: 91kg - Urine output I&O: 07/02/19 07/03/19 07/04/19 06:59 06:59 06:59 Output Total 139 Balance -139 FMR OB PN: Exam - Physical Exam General: NAD, awake, alert and oriented HEENT: MMM, conjunctiva clear, grossly normal vision, grossly normal hearing Neck: supple, no LAD Heart: pulses present Deviation from normal: trace pitting edema in BLE General: no respiratory distress Abdomen: soft, fundus(cm) (firm at level of umbilicus) Musculoskeletal: pulses present Neurological: no clonus, no focal deficit Skin: good tugor, capillary refill <2 seconds : appropriately tender Lymphatic: no unusual bruising or bleeding, no purpura Psychiatric: intact recent and remote memory, good judgement and insight FMR OB PN: Data - Labs Lab results: Laboratory Results - last 24 hr 07/03/19 13:09 Sodium 136 Potassium 3.6 Chloride 104 Carbon Dioxide 27 Anion Gap 9 L BUN Less than 4 L Creatinine 0.71 Estimated GFR (MDRD) Greater than 90 Glucose 74 Calcium 8.0 FMR OB PN: A/P - Problem List (1) Term delivered Current Visit: Yes Status: Acute Code(s): O80 - ENCOUNTER FOR FULL-TERM UNCOMPLICATED DELIVERY Comment: Continue routine care -PNV -Encourage ambulation -Ibuprofen for pain -Encouraged breast feeding, but pt declined (2) Gestational HTN Current Visit: No Status: Acute Code(s): O13.9 - GESTATIONAL HTN W/O SIGNIFICANT PROTEINURIA, UNSP TRIMESTER Comment: Pt developed a couple of severe range pressures just prior to delivery and was started on magnesium -Mag was stopped on 07/03 -Continue to monitor BP's, no severe range since off mag, mostly in 130s-140 systolic (3) Sickle cell trait Current Visit: Yes Status: Acute Code(s): D57.3 - SICKLE-CELL TRAIT Comment: FOB did not get tested, pt asymptomatic (4) Hypokalemia Current Visit: Yes Status: Acute Code(s): E87.6 - HYPOKALEMIA Comment: Resolved with replacement Disposition: Anticipate d/c home today pending BP's Discussion: Date/Time: 07/04/19 4044 This H&P was discussed with Dr. Terrazas who agrees with the above documentation and plan. Signature: Shani Meléndez MD, PGY-3 Addendum - Attending - Attending Attestation Date/Time: 07/04/19 1100 I personally evaluated the patient and discussed the management with Dr. Meléndez. I agree with the History, Examination, Assessment and Plan documented above with any addition or exceptions noted below. Plan for dc this PM with short follow up for BP check and good return precautions.
[2019-07-04] MEDS: Docusate Calcium (SURFAK) 240 MG CAP PO SCH (08:22)
[2019-07-04] MEDS: Prenatal Vitamin 1 TAB PO SCH (08:22)
[2019-07-04] MEDS: Lactated Ringer's 1,000 ML IV SCH (08:33)
[2019-07-04] MEDS: Potassium Chloride 20 MEQ TAB PO SCH (08:33)
[2019-07-04] MEDS: Misoprostol 100 MCG TAB VAG SCH ×2 (08:34→08:35)
[2019-07-04 12:28] VITALS: BP 132/86; TEMP 98.9
--- NOTE | 2019-07-05 07:00 | PQF ---
[facility] ISAIAS Carter KATELIN PEPE [id number] CLINICAL DOCUMENTATION CLARIFICATION FORM: POST DISCHARGE Addendum to original discharge summary date: ____ Late entry note date: __ DATE: 07/05/2019 ATTN:KATELIN PEPE Please exercise your independent, professional judgment in responding to the clarification form. Clinical indicators are provided on the bottom of this form for your review Please check appropriate box(s): [ ] Acute blood loss anemia [ ] Post-op anemia related to acute blood loss [x ] Chronic Anemia [ ] Other diagnosis [ ] Unable to determine In addition, please specify: Present on Admission (POA): [ x ] Yes [ ] No [ ] Unable to determine For continuity of documentation, please document condition throughout progress notes and discharge summary. Thank You. CLINICAL INDICATORS - SIGNS / SYMPTOMS / LABS Anemia in - Documented in OB H&P on 07/01 by Arleth Benitez HGB 10.1 on 07/03 and HCT 28.9 on 07/03 - Documented in Laboratory sickle cell trait - Documented in [employer] PNS on 07/04 by Medhat Mcleod Gestational HTN RISK FACTORS Vaginal Delivery Obesity EBL 75 ml TREATMENTS: Ferrous Sulfate 300 mg - Documented in Medication report (This form is maintained as a part of the permanent medical record) 2014 [employer] All Rights Reserved Karen [email or web address] [not provided] MTDD
== END 2019-07-04 12:45 | disposition home or self-care (01) | DRG 807 ==
LOC: L&D 05:39 → 3SW 07-03 11:55
PROVIDERS: ADMIT Family Medicine; ATTEND Family Medicine
PROC: 3E033VJ Introduction of Other Hormone into Peripheral Vein, Percutaneous Approach (ICD-10-PCS; principal; 2019-07-02)
PROC: 10E0XZZ Delivery of Products of Conception, External Approach (ICD-10-PCS; 2019-07-02)
DX: O13.4 Gestational [pregnancy-induced] hypertension without significant proteinuria, complicating childbirth (principal); Z37.0 Single live birth; O99.02 Anemia complicating childbirth; D64.9 Anemia, unspecified; O99.214 Obesity complicating childbirth; E66.9 Obesity, unspecified; O99.284 Endocrine, nutritional and metabolic diseases complicating childbirth; D57.3 Sickle-cell trait; Z3A.37 37 weeks gestation of pregnancy; E87.6 Hypokalemia
CPT/HCPCS: 36415; 51702; 80053; 85027; 86780; 86850; 86900; 86901; 87340; 88307; J0595; J2405; J2590; J3475; J3480; J7070

== ENCOUNTER 2019-11-19 14:26 | Emergency (ER) | payer OTHER ==
[2019-11-19 15:13] LABS: Bilirubin Negative (Negative); Blood, Urine Negative (Negative); Clarity Clear (Clear); Glucose, Urine (Dipstick) Normal (Negative); Leukocyte 25 Leu/uL (Negative); Nitrite Negative (Negative); Protein, Urine (Dipstick) 50 mg/dL (Neg-Trace); RBC/HPF 0-3 HPF (0-3); Urobilinogen Normal mg/dL (Less than 2); WBC/HPF 0-3 HPF (0-3)
[2019-11-19 15:14] LABS: Pregnancy Test - Urine (BHCG) Negative (Negative); Pregu Control Background? CLEAR/WHITE (CLR/WHITE); Pregu Control Bar Appear? YES (CONTROL BAR); Specific Gravity 1.014 (1.002-1.036)
[2019-11-19 15:21] LABS: Bacteria/HPF Rare-Few HPF (None Seen)
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
== END 2019-11-19 15:43 | disposition home or self-care (01) ==
LOC: ERS 14:26
DX: S16.1XXA Strain of muscle, fascia and tendon at neck level, initial encounter (principal); Y04.0XXA Assault by unarmed brawl or fight, initial encounter
CPT/HCPCS: 72125; 81003; 81015; 81025; L0120

== ENCOUNTER 2020-11-06 15:18 | Emergency (ER) | payer OTHER | END 2020-11-06 17:31 | disposition home or self-care (01) | LOC: ERS 15:18 | DX: R05 Cough (principal); R19.7 Diarrhea, unspecified; R06.7 Sneezing | CPT/HCPCS: 99281 ==

== ENCOUNTER 2021-07-25 06:43 | Emergency (ER) | payer MEDICAID, OTHER ==
[2021-07-25] MEDS ORDERED: Ibuprofen 200 MG TAB ONE (07:05)
[2021-07-25] MEDS ORDERED: Acetaminophen 325 MG TAB ONE (07:05)
[2021-07-25 17:23] LABS: SARS-CoV-2 PCR by NAA DETECTED (NotDetected)
== END 2021-07-25 08:03 | disposition home or self-care (01) ==
LOC: ERS 06:43
DX: U07.1 COVID-19 (principal); J11.1 Influenza due to unidentified influenza virus with other respiratory manifestations
CPT/HCPCS: 87804; 99284; U0003; U0005

== ENCOUNTER 2023-06-11 13:07 | Emergency (ER) | payer SELFPAY ==
[2023-06-11 14:33] LABS: SARS-CoV-2 NAA Rapid Test Not Detected (NotDetected)
== END 2023-06-11 14:54 | disposition home or self-care (01) ==
LOC: ERS 13:07
DX: J03.90 Acute tonsillitis, unspecified (principal); Z20.822 Contact with and (suspected) exposure to COVID-19
CPT/HCPCS: 87081; 87430; 99283

== ENCOUNTER 2023-06-13 21:32 | Emergency (ER) | payer SELFPAY | END 2023-06-13 22:14 | disposition left against medical advice (07) | LOC: ERS 21:32 | DX: Z53.21 Procedure and treatment not carried out due to patient leaving prior to being seen by health care provider (principal) ==

== ENCOUNTER 2024-04-19 08:22 | Inpatient (IN) | payer SELFPAY ==
[2024-04-19 09:14] LABS: %Lymphocytes 12.2 % (21.0-51.0); RBC Distribution Width 12.8 % (11.5-14.5)
[2024-04-19 09:37] LABS: ALT (SGPT) 9 U/L (8-55); AST (SGOT) 15 U/L (5-34); Alkaline Phosphatase 59 U/L (40-110); Anion Gap 14 mmol/L (10-20); BUN (Urea Nitrogen) 7 mg/dL (7.0-18.7); Bilirubin, Total 0.2 mg/dL (0.2-1.2); Calc. Creatinine Clearance 0 mL/min (70-130); Calcium 8.9 mg/dL (7.8-10.44); Carbon Dioxide 26 mmol/L (22-29); Chloride 105 mmol/L (98-107); Estimated GFR 125; Globulin 3.9 g/dL (2.4-3.5); Glucose 86 mg/dL (70-105); Potassium 3.8 mmol/L (3.5-5.1); Protein, Total 6.9 g/dL (6.0-8.3); Sodium 141 mmol/L (136-145)
[2024-04-19 09:39] LABS: #Basophils Less than 0.03 10x3/uL (0.0-0.2); %Basophils 0.2 % (0.0-1.0); %Monocytes 4.3 % (0.0-10.0); %Neutrophils 80.9 % (42.0-75.0); Hemoglobin 10.8 g/dL (12.0-16.0); Mean Corpuscular HGB CONC 34.8 g/dL (32.0-36.0); Mean Corpuscular Hemoglobin 30.3 pg (27.0-31.0); Mean Corpuscular Volume 87.1 fL (78.0-98.0); Mean Platelet Volume 9.3 fL (7.4-10.4); Platelet Count 461 10x3/uL (130-400); Red Blood Cell (RBC) Count 3.56 mill/uL (4.20-5.40)
[2024-04-19] MEDS ORDERED: HYDROcodone/Acetaminophen 5/325 mg Tablet ONE (11:28)
[2024-04-19] MEDS ORDERED: Cefepime 2 GM VIAL ONE (12:58)
[2024-04-19] MEDS ORDERED: Sodium Chloride 0.9% 100 ML ONE (12:58)
[2024-04-19] MEDS ORDERED: Ondansetron ODT 4 MG TAB PO PRN (13:08)
[2024-04-19] MEDS ORDERED: Bisacodyl 5 MG TAB PO PRN (13:08)
[2024-04-19] MEDS ORDERED: Ibuprofen 200 MG TAB PO PRN (13:08)
[2024-04-19] MEDS ORDERED: Vancomycin 1 GM/200 ML (FROZEN) BAG ONE (13:20)
[2024-04-19] MEDS ORDERED: cefTRIAXone\\ROCEPHIN 1 GM in Sodium Chloride 0.9% 100 ML IVPB SCH (14:00)
[2024-04-19] MEDS: Acetaminophen 325 MG TAB PO PRN (15:43)
[2024-04-19 16:31] VITALS: BMI 25.7
[2024-04-19] MEDS: Vancomycin HCl 750 MG in Sodium Chloride 0.9% 250 ML 250 ML IVPB SCH (17:21)
[2024-04-19] MEDS: Ketorolac Tromethamine 30 MG (1 mL) VIAL IVP PRN (22:38)
[2024-04-19] MEDS: Vancomycin (BATCH) 1.25 GM in Premix 1 BAG IVPB SCH (22:39)
[2024-04-19] MEDS ORDERED: Vancomycin 1 GM in Premix 1 BAG IVPB SCH (23:00)
[2024-04-20] MEDS: Acetaminophen 325 MG TAB PO SCH (05:07)
[2024-04-20 07:06] LABS: #Basophils 0.04 10x3/uL (0.0-0.2); %Basophils 0.4 % (0.0-1.0); %Eosinophils 2.2 % (0.0-10.0); %Lymphocytes 13.3 % (21.0-51.0); %Monocytes 5.2 % (0.0-10.0); %Neutrophils 78.7 % (42.0-75.0); Hematocrit 31.7 % (36.0-47.0); Hemoglobin 10.6 g/dL (12.0-16.0); Mean Corpuscular HGB CONC 33.4 g/dL (32.0-36.0); Mean Corpuscular Hemoglobin 30.4 pg (27.0-31.0); Mean Corpuscular Volume 90.8 fL (78.0-98.0); Mean Platelet Volume 9.3 fL (7.4-10.4); Platelet Count 466 10x3/uL (130-400); RBC Distribution Width 12.7 % (11.5-14.5); Red Blood Cell (RBC) Count 3.49 mill/uL (4.20-5.40)
[2024-04-20 07:22] LABS: BHCG - Serum Negative (NEGATIVE); Pregs Control Background? CLEAR/WHITE (CLR/WHITE); Pregs Control Bar Appear? YES (CONTROL BAR)
[2024-04-20 07:27] LABS: Vancomycin, Random 20.3 ug/mL (See Comment)
[2024-04-20 07:29] LABS: ALT (SGPT) 9 U/L (8-55); AST (SGOT) 15 U/L (5-34); Albumin 3.1 g/dL (3.5-5.0); Alkaline Phosphatase 61 U/L (40-110); Anion Gap 16 mmol/L (10-20); BUN (Urea Nitrogen) 7 mg/dL (7.0-18.7); Bilirubin, Total 0.2 mg/dL (0.2-1.2); Calc. Creatinine Clearance 141 mL/min (70-130); Carbon Dioxide 21 mmol/L (22-29); Chloride 107 mmol/L (98-107); Estimated GFR 126; Globulin 3.7 g/dL (2.4-3.5); Glucose 103 mg/dL (70-105); Potassium 3.9 mmol/L (3.5-5.1); Protein, Total 6.8 g/dL (6.0-8.3); Sodium 140 mmol/L (136-145)
[2024-04-20] MEDS: HYDROcodone/Acetaminophen 5/325 mg Tablet PO PRN (09:00)
[2024-04-20] MEDS: cefTRIAXone\\ROCEPHIN 2 GM in Sodium Chloride 0.9% 100 ML IVPB SCH ×2 (15:23→15:33)
[2024-04-20] MEDS: Ibuprofen 800 MG TAB PO PRN (18:25)
[2024-04-21 06:58] LABS: #Basophils 0.03 10x3/uL (0.0-0.2); %Basophils 0.3 % (0.0-1.0); %Eosinophils 2.1 % (0.0-10.0); %Lymphocytes 11.4 % (21.0-51.0); %Monocytes 8.1 % (0.0-10.0); %Neutrophils 77.8 % (42.0-75.0); Hematocrit 27.8 % (36.0-47.0); Hemoglobin 9.6 g/dL (12.0-16.0); Mean Corpuscular HGB CONC 34.5 g/dL (32.0-36.0); Mean Corpuscular Hemoglobin 30.7 pg (27.0-31.0); Mean Corpuscular Volume 88.8 fL (78.0-98.0); Mean Platelet Volume 9.4 fL (7.4-10.4); Platelet Count 437 10x3/uL (130-400); RBC Distribution Width 12.7 % (11.5-14.5); Red Blood Cell (RBC) Count 3.13 mill/uL (4.20-5.40)
[2024-04-21 07:32] LABS: ALT (SGPT) 8 U/L (8-55); AST (SGOT) 14 U/L (5-34); Albumin 2.7 g/dL (3.5-5.0); Alkaline Phosphatase 55 U/L (40-110); Anion Gap 11 mmol/L (10-20); BUN (Urea Nitrogen) 6 mg/dL (7.0-18.7); Bilirubin, Total 0.1 mg/dL (0.2-1.2); Calc. Creatinine Clearance 135 mL/min (70-130); Calcium 8.4 mg/dL (7.8-10.44); Carbon Dioxide 25 mmol/L (22-29); Chloride 108 mmol/L (98-107); Estimated GFR 124; Globulin 3.3 g/dL (2.4-3.5); Glucose 78 mg/dL (70-105); Potassium 3.4 mmol/L (3.5-5.1); Sodium 141 mmol/L (136-145)
[2024-04-21] MEDS: Potassium Chloride 20 MEQ TAB PO SCH (10:24)
[2024-04-21] MEDS ORDERED: Lidocaine 1% MPF 2 ML VIAL ONE (13:03)
[2024-04-21] MEDS ORDERED: cefTRIAXone (ROCEPHIN) 2 GM VIAL ONE (14:22)
[2024-04-21] MEDS ORDERED: Sodium Chloride 0.9% 100 ML ONE (14:23)
[2024-04-21] MEDS ORDERED: Midazolam HCl 2 mg/2 ml Vial ONE (14:29)
[2024-04-21] MEDS ORDERED: fentaNYL 50 mcg/mL 1 mL Vial ONE (14:29)
[2024-04-21] MEDS ORDERED: PROPOFOL 20 ML ONE (14:29)
[2024-04-21] MEDS ORDERED: EPINEPHrine 1 MG/ML VIAL ONE (14:36)
[2024-04-21] MEDS ORDERED: Ondansetron PF 4 MG/2 ML Vial ONE (14:49)
[2024-04-21] MEDS ORDERED: Ketorolac Tromethamine 30 MG (1 mL) VIAL ONE (14:49)
[2024-04-21] MEDS ORDERED: Dexamethasone 20 MG/5 ML VIAL ONE (14:49)
[2024-04-21 17:38] VITALS: BP 106/65; TEMP 97.2
[2024-04-22] MEDS ORDERED: cefTRIAXone\\ROCEPHIN 2 GM in Sodium Chloride 0.9% 100 ML IVPB SCH (14:00)
== END 2024-04-21 17:00 | disposition home or self-care (01) | DRG 585 ==
LOC: ERS 08:22 → SURG B 13:00
PROVIDERS: ADMIT Specialist; ATTEND Specialist
PROC: 0H9U0ZZ Drainage of Left Breast, Open Approach (ICD-10-PCS; principal; 2024-04-21)
PROC: 3E033XZ Introduction of Vasopressor into Peripheral Vein, Percutaneous Approach (ICD-10-PCS; 2024-04-21)
DX: N61.1 Abscess of the breast and nipple (principal); D64.9 Anemia, unspecified; E87.6 Hypokalemia; D72.829 Elevated white blood cell count, unspecified; Z79.899 Other long term (current) drug therapy; Z53.9 Procedure and treatment not carried out, unspecified reason
CPT/HCPCS: 36415; 80053; 80202; 83605; 84703; 85025; 87040; 96365; 96367; J0171; J0692; J0696; J1100; J1885; J2250; J2405; J2704; J3010; J3370; J3370-JW; J7050